=== PATIENT | female | born 1965 | race Caucasian/White ===

== ENCOUNTER 2017-01-17 13:37 | Emergency (ER) | payer OTHER ==
[~2017-01-17] VITALS: Ht 162.6 cm; Wt 67.8 kg
[2017-01-17 13:41] VITALS: TEMP 36.6; Ht 162.6 cm; Wt 67.8 kg
[2017-01-17] MEDS ORDERED: SODIUM CHLORIDE 0.9% 1000ML 1,000 ML IV STA (13:48)
[2017-01-17] MEDS ORDERED: ONDANSETRON INJ 2 MG/ML 2 ML VIAL IV STA (13:48)
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
[2017-01-17] MEDS ORDERED: DIPHTHERIA/TETANUS/PERTUSSIS 0.5 ML SYR/VIAL IM. ONE (14:00)
[2017-01-17] MEDS ORDERED: OPTIRAY 320 IV PRN (14:15)
[2017-01-17 14:18] LABS: ISTAT CREATININE 0.6 mg/dl (0.6-1.3); ISTAT HEMOGLOBIN 13.3 g/dl (12.0-16.0); ISTAT IONIZED CALCIUM 1.02 mmol/l (1.12-1.32)
[2017-01-17] MEDS: MoRPHine SULFATE 4 MG/ML 1 ML CARP\\VIAL IV PRN ×2 (14:19→15:36)
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
[2017-01-17 15:05] LABS: BASO % 0.1 %; BASO ABS # 0.02 K/uL (0-0.2); COMPLETE YES; EOS % 0.3 %; HEMATOCRIT 35.6 % (37-47); IG% 0.6 %; LYMPH % 10.7 %; LYMPH ABS # 1.45 K/uL (1.2-3.4); MEAN CELL VOLUME 94.4 fL (80-100); MEAN CORPUSCULAR HEMOGLOBIN 32.9 pg (25-34); MEAN CORPUSCULAR HGB CONC 34.8 g/dl (32-36); MEAN PLATELET VOLUME 11.4 fL (7.4-10.4); MONO % 4.2 %; NEUT % 84.1 %; PLATELET COUNT 137 K/uL (130-400); RED BLOOD COUNT 3.77 M/uL (4.2-5.4); WHITE BLOOD COUNT 13.49 K/uL (4.8-10.8)
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
[2017-01-17 15:19] LABS: INR 1.1 (0.9-1.1); PARTIAL THROMBOPLASTIN RATIO 0.9
[2017-01-17 15:31] LABS: ALKALINE PHOSPHATASE 61 U/L (45-117); ALT/SGPT 31 U/L (12-78); AST/SGOT 29 U/L (15-37); BLOOD UREA NITROGEN 12 mg/dl (7-18); BUN/CREATININE RATIO 15.7 (10-20); CALCIUM 8.3 mg/dl (8.5-10.1); CARBON DIOXIDE 26 mmol/L (21-32); CHLORIDE 105 mmol/L (98-107); CREATININE 0.76 mg/dl (0.60-1.20); GLUCOSE 109 mg/dl (70-99); POTASSIUM 3.8 mmol/L (3.5-5.1); SODIUM 139 mmol/L (136-145)
[2017-01-17 15:35] LABS: PREG INTERNAL NEGATIVE QC NEG CLEAR BACKGROUND; PREG INTERNAL POSITIVE QC POS CONTROL LINE
[2017-01-17 15:36] LABS: CKMB/CK RATIO 0.9 (0-3.0)
[2017-01-17] MEDS ORDERED: LIDOCAINE/EPINEPHRINE 1% 20 ML VIAL INFIL ONE (16:00)
--- NOTE | 2017-01-17 16:22 | EMERGENCY ROOM VISIT NOTE ---
ED Visit Note I was approached by my attending physician and asked to perform primary wound closure of a laceration to the posterior scalp. Please refer to his dictation for entire historical and physical examination information. Procedure as follows: Costs and benefits of performing primary wound closure versus no repair were discussed with the patient who verbalizes understanding. Verbal consent was obtained prior to performing the procedure. 2.0 cc of 1% lidocaine with epinephrine was used to anesthetize the scalp laceration. The wound was cleansed and prepped in the typical sterile fashion utilizing normal saline and Betadine. The wound was sterilely draped. Once proper anesthetization was established, the wound was further examined and demonstrated a partial thickness laceration measuring 3.0 cm in length. The wound was copiously irrigated with normal saline and Betadine. The wound was closed using 5 teresa with the wound edges being well approximated. Patient tolerated the procedure well. No complications were met.
[2017-01-17 17:26] LABS: URINE APPEARANCE CLEAR (CLEAR); URINE BILIRUBIN NEG (NEG); URINE COLOR YELLOW; URINE NITRITE NEG (NEG); URINE SPECIFIC GRAVITY 1.026 (1.000-1.030); UROBILINOGEN NEG (NEG)
[2017-01-17 17:28] LABS: MANUAL MICROSCOPIC REQUIRED? NO; REVIEW REQ? NO
[2017-01-17 17:51] VITALS: BP 108/65; PULSE 85; O2SAT 95
== END 2017-01-17 17:52 | disposition short-term general hospital (02) ==
LOC: EDBD 13:37 → C.EDA 13:40
DX: S32.042A Unstable burst fracture of fourth lumbar vertebra, initial encounter for closed fracture (principal); S42.035A Nondisplaced fracture of lateral end of left clavicle, initial encounter for closed fracture; S01.01XA Laceration without foreign body of scalp, initial encounter; V80.42XA Occupant of animal-drawn vehicle injured in collision with car, pick-up truck, van, heavy transport vehicle or bus, initial encounter